=== PATIENT | female | born 2000 | race Caucasian/White ===

== ENCOUNTER 2021-07-23 06:49 | Inpatient (IN) ==
[2021-07-23 09:00] LABS: Basophils # (auto) 0.02 K/uL (0-0.2); Basophils % (auto) 0.2 %; Eosinophils # (auto) 0.06 K/uL (0-0.5); Eosinophils % (auto) 0.5 %; Hematocrit (blood only) 35.3 % (37-47); Hemoglobin 11.1 g/dL (12.0-16.0); Immature Granulocytes # (auto) 0.09 K/uL (0.00-0.02); Immature Granulocytes % (auto) 0.8 %; Lymphocytes # (auto) 2.94 K/uL (1.2-3.4); Lymphocytes % (auto) 25.3 %; Mean Corpuscular Hgb Conc 31.4 g/dL (32-36); Mean Corpuscular Volume 82.7 fL (80-100); Mean Platelet Volume 9.7 fL (7.4-10.4); Monocytes # (auto) 1.01 K/uL (0.11-0.59); Monocytes % (auto) 8.7 %; Neutrophils # (auto) 7.49 K/uL (1.4-6.5); Neutrophils % (auto) 64.5 %; Platelet Count 504 K/uL (130-400); RDW Standard Deviation 45.4 fL (36.4-46.3); Red Blood Count 4.27 M/uL (4.2-5.4); White Blood Count 11.61 K/uL (4.8-10.8)
[2021-07-23 09:18] LABS: Alanine Aminotransferase 16 (12-78); Albumin Level 2.6 gm/dl (3.4-5.0); Aspartate Aminotransferase 12 U/L (15-37); BUN Creatinine Ratio 22.3 (10-20); Blood Urea Nitrogen 13 mg/dl (7-18); Calcium 8.7 mg/dl (8.5-10.1); Carbon Dioxide 20 mmol/L (21-32); Chloride 110 mmol/L (98-107); Creatinine Clr Calc Pharmacy 177.6 ml/min; Est GFR (African American) > 150.0 ml/min; Est GFR (Non-African American) 130.3 ml/min; Glucose 77 mg/dl (70-99); Potassium 4.1 mmol/L (3.5-5.1); Sodium 138 mmol/L (136-145)
[2021-07-23 09:21] LABS: Albumin Globulin Ratio 0.6 (0.9-2); Alkaline Phosphatase 204 U/L (45-117); Globulin 4.3 gm/dl (2.5-4.0); Total Protein 6.9 gm/dl (6.4-8.2)
[2021-07-23 09:31] LABS: Bilirubin,Total 0.1 mg/dl (0.2-1)
[2021-07-23] MEDS: ACETAMINOPHEN 500 MG TAB PO PRN (09:35)
--- NOTE | 2021-07-23 11:04 | History & Physical Report ---
Date of Service July 23, 2021 History of Present Illness Primary Care Provider: NO PCP Allergies Allergy/AdvReac Type Severity Reaction Status Date / Time amoxicillin Allergy Intermediate hives Verified 07/23/21 09:14 Home Medications Medication Instructions Recorded Confirmed Type ondansetron HCl 4 mg tablet 4 mg PO Q6H PRN 07/23/21 07/23/21 History prenat.vits,johanne,[id number]-[id number] 1 tab PO DAILY 07/23/21 07/23/21 History Patient History Medical History (Updated 07/23/21 @ 07:13 by Ginger Carpio RN) Anxiety Depression Scoliosis (and kyphoscoliosis), idiopathic Surgical History (Updated 07/23/21 @ 07:13 by Ginger Carpio RN) S/P PDA repair Family History (Updated 07/23/21 @ 07:15 by Ginger Carpio RN) Father Bipolar 1 disorder Social History (Updated 07/23/21 @ 07:17 by Ginger Carpio RN) Smoking Status: Former smoker Tobacco Type: Cigarettes and E-cigarettes / Vaping Number of Years Since Quit: 1; Second Hand Exposure: Yes; Hx Alcohol Use: No Hx Substance Use: No Preferred Language: Singaporean Communication Ability: Effective Visual Impairment: No Limitations [employer] Insurance Required: No Beliefs That Will Affect Care: None marital status: Single Current Living Situation: Parent Current Living Situation Comment: Lives with mother and FOB current occupational status: unemployed Other Information That Helps Us Care for You: No Feels Safe at Home: Yes Safety Concerns: Feels Safe At This Time Childhood Exposure to Second-Hand Smoke: No Gender Identity: Female Assistive Devices: None Results & Data ([facility]) Vital Signs (Past 12 Hours) Vital Signs Temp Pulse Resp BP 07/23/21 10:06 96 H 129/82 07/23/21 08:27 97 H 133/92 07/23/21 07:33 90 137/94 07/23/21 07:28 36.8 C 90 20 137/94 07/23/21 06:54 105 H 128/92
[2021-07-23] MEDS ORDERED: OXYTOCIN 30 UNITS/500 ML BAG IV PRN ×2 (11:05→11:10)
[2021-07-23 11:21] LABS: Hemoglobin 11.4 g/dL (12.0-16.0); Mean Corpuscular Hemoglobin 26.5 pg (25-34); Mean Corpuscular Hgb Conc 31.7 g/dL (32-36); Mean Corpuscular Volume 83.5 fL (80-100); Mean Platelet Volume 9.8 fL (7.4-10.4); Platelet Count 499 K/uL (130-400); RDW Standard Deviation 46.3 fL (36.4-46.3); Red Blood Count 4.31 M/uL (4.2-5.4); White Blood Count 12.01 K/uL (4.8-10.8)
--- NOTE | 2021-07-23 11:43 | History & Physical Report ---
Date of Service July 23, 2021 Assessment & Plan (1) 39 weeks gestation of : Plan: Admit, routine labs, Start oxytocin for augmentation (2) Thick meconium stained amniotic fluid: (3) Elevated BP without diagnosis of hypertension: Plan: will be GHTN if >BP after 4 hours (4) Positive GBS test: Plan: IV Vanc 1gr q12hr until delivery Admission and Anticipated Discharge Date Admission Date: July 23, 2021 History of Present Illness Chief Complaint: LOF at 5 am Primary Care Provider: NO PCP Patient is a 21 year old at 39 2/7 weeks by stated HANY who started care from [facility] (no records yet) who transferred care to [facility] at 36 weeks. Presents LOF at 5 am. Denies contractions, bleeding. + movement. Denies other complaints at this time records from [facility] pending Allergies Allergy/AdvReac Type Severity Reaction Status Date / Time amoxicillin Allergy Intermediate hives Verified 07/23/21 09:14 Home Medications Medication Instructions Recorded Confirmed Type ondansetron HCl 4 mg tablet 4 mg PO Q6H PRN 07/23/21 07/23/21 History prenat.vits,johanne,sri-gsif-duspc 1 tab PO DAILY 07/23/21 07/23/21 History Patient History Medical History (Updated 07/23/21 @ 11:50 by Chula Chamorro MD, PhD) Anxiety Depression PDA (patent ductus arteriosus) Scoliosis (and kyphoscoliosis), idiopathic Surgical History (Updated 07/23/21 @ 07:13 by Ginger Carpio RN) S/P PDA repair Family History (Updated 07/23/21 @ 07:15 by Ginger Carpio RN) Father Bipolar 1 disorder Social History (Updated 07/23/21 @ 07:17 by Ginger Carpio RN) Smoking Status: Former smoker Tobacco Type: Cigarettes and E-cigarettes / Vaping Number of Years Since Quit: 1; Second Hand Exposure: Yes; Hx Alcohol Use: No Hx Substance Use: No Preferred Language: Yoruba Communication Ability: Effective Visual Impairment: No Limitations Rest Room Matron Required: No Beliefs That Will Affect Care: None marital status: Single Current Living Situation: Parent Current Living Situation Comment: Lives with mother and FOB current occupational status: unemployed Other Information That Helps Us Care for You: No Feels Safe at Home: Yes Safety Concerns: Feels Safe At This Time Childhood Exposure to Second-Hand Smoke: No Gender Identity: Female Assistive Devices: None OB History Per patient ruptured at 32 weeks and made till term. Delievered term and adopted out. Female girl at approx age 4 (Leukemia per patient) Review of Systems All systems reviewed & are unremarkable except as noted in HPI & below Physical Exam Constitutional: WD/WN, vitals as above Respiratory: normal respiratory effort, lungs clear to auscultation Cardiovascular: RRR, no murmur, no edema Gastrointestinal (Abdomen): normal bowel sounds, soft, nontender, no hepatosp lenomegaly US: vertex Genitourinary: no vaginal lesions, no adnexal mass Cx: /- thick mec (checked by RN) Results & Data ([facility]) Vital Signs (Past 12 Hours) Vital Signs Temp Pulse Resp BP 07/23/21 10:06 96 H 129/82 07/23/21 08:27 97 H 133/92 07/23/21 07:33 90 137/94 07/23/21 07:28 36.8 C 90 20 137/94 07/23/21 06:54 105 H 128/92 Monitoring External Monitor FHT: baseline 140, mod variability, +accels, no decels Category I tracing Tocodynamometer Q 5-8 min
[2021-07-23] MEDS: LACTATED RINGER'S 1,000 ML IV PRN ×3 (11:44→22:34)
[2021-07-23] MEDS ORDERED: VANCOMYCIN HCL 1,000 MG in SODIUM CHLORIDE 0.9% 250 ML IV STA (13:02)
[2021-07-23 13:19] LABS: Protein Creatinine Ratio Urine 0.1 (0-0.2); Total Protein Urine Random 24.1 mg/dl (0-11.9)
[2021-07-23] MEDS: VANCOMYCIN HCL 2,000 MG in SODIUM CHLORIDE 0.9% 500 ML IV SCH ×2 (13:55→21:07)
[2021-07-23] MEDS ORDERED: fentaNYL citrate 100 MCG/2 ML VIAL ONE (17:19)
[2021-07-23] MEDS ORDERED: ePHEDrine sulfate 50 MG/ML AMP ONE (17:19)
[2021-07-23] MEDS ORDERED: BUPIVACAINE 0.25% 30 ML VIAL ONE (17:19)
[2021-07-23] MEDS ORDERED: SODIUM CHLORIDE 0.9% INJ 10 ML VIAL ONE (17:19)
[2021-07-23] MEDS ORDERED: fentaNYL 2MCG/ML ROPIVACAINE 1.25MG/ML 100 ML BAG EPI ONE (17:20)
--- NOTE | 2021-07-23 17:24 | Labor Progress Brief Note ---
Date of Service July 23, 2021 Subjective Painful contractions, pain 8/10 Assessment & Plan (1) Thick meconium stained amniotic fluid: (2) Positive GBS test: Plan: IV Vanc 1gr q12hr until delivery (3) Gestational [-induced] hypertension without significant proteinuria, complicating childbirth: Plan: Protein:creatinine 0.2 (normal) (4) 39 weeks gestation of : Plan: Continue oxytocin Epidural Anticipate Admission and Anticipated Discharge Date Admission Date: July 23, 2021 Physical Exam Constitutional: WD/WN, vitals as above Genitourinary: FHT: baseline 145, mod variability, +accels, no decels, cat 1 [place]: q3-4 min Cx: unchanged (checked by RN) Results & Data ([facility]) Vital Signs (Past 12 Hours) Vital Signs Temp Pulse Resp BP 07/23/21 16:22 72 121/76 07/23/21 15:22 36.9 C 88 20 142/88 H 07/23/21 14:22 82 134/88 07/23/21 13:21 100 H 128/77 07/23/21 13:07 85 135/90 07/23/21 12:52 92 H 142/89 H 07/23/21 12:36 99 H 134/85 07/23/21 12:21 92 H 134/81 07/23/21 12:06 37 C 99 H 20 141/92 H 07/23/21 10:06 96 H 129/82 07/23/21 08:27 97 H 133/92 07/23/21 07:33 90 137/94 07/23/21 07:28 36.8 C 90 20 137/94 07/23/21 06:54 105 H 128/92
[2021-07-23] MEDS ORDERED: NALBUPHINE HCL INJ 10 MG/ML AMP IV PRN (19:13)
[2021-07-23] MEDS ORDERED: ONDANSETRON INJ 2 MG/ML 2 ML VIAL IV PRN (19:13)
[2021-07-23] MEDS ORDERED: ePHEDrine sulfate 50 MG/ML AMP IV PRN (19:13)
[2021-07-23] MEDS ORDERED: fentaNYL 2MCG/ML ROPIVACAINE 1.25MG/ML 100 ML BAG EPI PRN (19:13)
[2021-07-23] MEDS ORDERED: PROMETHAZINE HCL 6.25 MG in SODIUM CHLORIDE 0.9% 50 ML IV PRN (19:13)
[2021-07-23] MEDS ORDERED: diphenhydrAMINE 50 MG/ML VIAL IV PRN (19:13)
[2021-07-23] MEDS ORDERED: NALOXONE HCL 1 MG in SODIUM CHLORIDE 0.9% 1000ML 1,000 ML IV PRN (19:13)
[2021-07-23] MEDS ORDERED: NALOXONE HCL 0.4 MG/1 ML VIAL/CARP IV PRN (19:13)
--- NOTE | 2021-07-23 19:13 | Anesthesiology Consultation ---
Date of Service July 23, 2021 Assessment & Plan Chart Review Chart Review: Patient NOT seen in Pre Admission Testing and Acceptable Risk for Labor Epidural Consults Requested none ASA ASA2 Proposed Anesthesia Anesthesia Type: Labor Epidural Risk / Benefits Reviewed With: PT / POA / Parent / Guardian, Accepts Plan and Informed Consent Obtained History Height/Weight Height: 5 ft 6 in Weight: 100.698 kg Allergies Allergy/AdvReac Type Severity Reaction Status Date / Time amoxicillin Allergy Intermediate hives Verified 07/23/21 09:14 Medications Home Medications Medication Instructions Recorded Confirmed Last Taken ondansetron HCl 4 mg tablet 4 mg PO Q6H PRN 07/23/21 07/23/21 07/21/21 08:00 prenat.vits,johanne,dyl-jsgn-oiwdt 1 tab PO DAILY 07/23/21 07/23/21 07/22/21 08:00 Active Medications Generic Name Dose Route Start Last Admin Trade Name Freq PRN Reason Stop Dose Admin Acetaminophen 1,000 mg 07/23/21 08:36 07/23/21 09:35 Acetaminophen 500 Mg Tab PO 08/22/21 08:35 1,000 mg Q6H PRN Administration headache Lactated Ringer's 1,000 mls @ 125 mls/hr 07/23/21 11:05 07/23/21 18:49 Lr IV 07/25/21 11:04 125 mls/hr .Q8H PRN Infusion L&D Protocol Protocol Oxytocin 30 units in 500 mls @ 18 mls/hr 07/23/21 11:10 07/23/21 18:48 Pitocin IV 07/25/21 11:09 1.08 units/hr .Q24H PRN 18 mls/hr Labor Induction/Augmentation Titration Protocol 1.08 UNITS/HR Vancomycin HCl 2,000 mg/ 540 mls @ 200 mls/hr 07/23/21 13:30 07/23/21 13:55 Sodium Chloride IV 07/25/21 13:29 200 mls/hr Q8H CHERELLE Administration Past Medical History Medical History (Updated 07/23/21 @ 17:23 by Chula Chamorro MD, PhD) Anxiety Depression PDA (patent ductus arteriosus) Scoliosis (and kyphoscoliosis), idiopathic Exercise / Class Metabolic Activity II 4-5 Yardwork/Stairs/Walk up hill Past Family History Family History (Updated 07/23/21 @ 07:15 by Ginger Carpio RN) Father Bipolar 1 disorder Past Surgical History Surgical History (Updated 07/23/21 @ 18:30 by Ginger Carpio RN) S/P PDA repair (~08/07/01) Past Anesthesia History No Hx of Anesthesia Complications and No Family Hx of Anesthesia Complications History of PONV No Hx of PONV and No Hx of Motion Sickness Social History Smoking Status: Former smoker Hx Alcohol Use: No Hx Substance Use: No substance use type: does not use Physical Exam Vital Signs Last Vital Signs Temp 37 C 07/23/21 17:40 Pulse 88 07/23/21 19:11 Resp 20 07/23/21 17:40 BP 132/79 07/23/21 19:11 Pulse Ox 99 07/23/21 19:07 ENMT Mouth: no dentition abnormality Thyromental Distance: > or= 3.5 Finger Breadths Mallampati Class: II Neck normal visual inspection Respiratory normal respiratory effort Auscultation: lungs clear to auscultation bilaterally Cardiovascular Rate/Rhythm: regular rate and regular rhythm Psychiatric Orientation: alert Testing Laboratory Results 07/23/21 11:13 07/23/21 08:51
[2021-07-23] MEDS ORDERED: VANCOMYCIN HCL 1,000 MG in SODIUM CHLORIDE 0.9% 250 ML IV PRN (22:05)
--- NOTE | 2021-07-23 22:34 | Labor Progress Brief Note ---
Date of Service July 23, 2021 Subjective Comfortable on epidural Assessment & Plan (1) Thick meconium stained amniotic fluid: (2) Positive GBS test: Plan: IV Vanc 1gr q12hr until delivery (3) Gestational [-induced] hypertension without significant proteinuria, complicating childbirth: Plan: Protein:creatinine 0.2 (normal) (4) 39 weeks gestation of : Plan: Contineu pit Epidural Anticipate Admission and Anticipated Discharge Date Admission Date: July 23, 2021 Physical Exam Constitutional: WD/WN, vitals as above Genitourinary: FHT:baseline 155 mod variability, no accels, variable decels, cat II [place]: q2-3 min pit at 18 Cx: 3/90/-1 IUPC placed Results & Data ([facility]) Vital Signs (Past 12 Hours) Vital Signs Temp Pulse Resp BP Pulse Ox 07/23/21 22:27 93 H 99 07/23/21 22:22 101 H 99 07/23/21 22:20 96 H 130/78 07/23/21 22:17 100 H 99 07/23/21 22:12 99 H 98 07/23/21 22:07 97 H 98 07/23/21 22:06 90 130/78 07/23/21 22:05 37.3 C 18 07/23/21 22:02 99 H 98 07/23/21 21:57 115 H 99 07/23/21 21:52 114 H 98 07/23/21 21:50 103 H 128/82 07/23/21 21:47 108 H 99 07/23/21 21:42 103 H 100 07/23/21 21:37 110 H 99 07/23/21 21:36 109 H 132/73 07/23/21 21:32 100 H 99 07/23/21 21:27 102 H 99 07/23/21 21:22 93 H 97 07/23/21 21:20 90 119/62 07/23/21 21:17 87 98 07/23/21 21:12 85 98 07/23/21 21:07 91 H 98 07/23/21 21:05 88 120/65 07/23/21 21:02 89 98 07/23/21 20:57 101 H 98 07/23/21 20:55 37.5 C 18 07/23/21 20:52 98 H 97 07/23/21 20:50 105 H 137/89 07/23/21 20:47 107 H 97 07/23/21 20:42 103 H 97 07/23/21 20:37 102 H 98 07/23/21 20:35 105 H 136/79 07/23/21 20:32 103 H 97 07/23/21 20:27 106 H 98 07/23/21 20:22 132 H 97 07/23/21 20:20 113 H 132/80 92 07/23/21 20:17 95 H 98 07/23/21 20:12 99 H 98 07/23/21 20:07 97 H 95 07/23/21 20:06 98 H 129/82 07/23/21 20:02 97 H 95 07/23/21 19:57 95 H 97 07/23/21 19:52 92 H 97 07/23/21 19:50 87 133/83 07/23/21 19:47 94 H 96 07/23/21 19:42 88 96 07/23/21 19:37 85 97 07/23/21 19:36 86 134/82 07/23/21 19:32 90 97 07/23/21 19:27 86 97 07/23/21 19:22 94 H 97 07/23/21 19:20 84 131/75 07/23/21 19:17 96 H 96 07/23/21 19:12 91 H 98 07/23/21 19:11 88 20 132/79 07/23/21 19:10 37.1 C 16 07/23/21 19:07 89 99 07/23/21 19:06 86 132/79 07/23/21 19:02 89 99 07/23/21 18:57 93 H 100 07/23/21 18:52 92 H 98 07/23/21 18:50 82 18 131/77 07/23/21 18:47 85 98 07/23/21 18:42 104 H 97 07/23/21 18:37 90 98 07/23/21 18:35 94 H 20 123/71 07/23/21 18:32 96 H 98 07/23/21 18:27 95 H 100 07/23/21 18:22 93 H 99 07/23/21 18:19 95 H 137/81 07/23/21 18:17 95 H 144/85 H 98 07/23/21 18:15 93 H 142/86 H 07/23/21 18:13 92 H 134/76 07/23/21 18:12 97 H 96 07/23/21 18:11 99 H 146/83 H 07/23/21 18:09 95 H 145/85 H 07/23/21 18:07 105 H 20 133/84 97 07/23/21 18:05 95 H 141/87 H 07/23/21 18:03 91 H 141/94 H 07/23/21 18:02 99 H 128/79 92 07/23/21 17:57 89 99 07/23/21 17:40 37 C 88 20 143/87 H 07/23/21 17:22 87 20 126/87 07/23/21 16:22 72 121/76 07/23/21 15:22 36.9 C 88 20 142/88 H 07/23/21 14:22 82 134/88 07/23/21 13:21 100 H 128/77 07/23/21 13:07 85 135/90 07/23/21 12:52 92 H 142/89 H 07/23/21 12:36 99 H 134/85 07/23/21 12:21 92 H 134/81 07/23/21 12:06 37 C 99 H 20 141/92 H
[2021-07-24] MEDS: ACETAMINOPHEN 500 MG TAB PO PRN (00:40)
[2021-07-24] MEDS: LACTATED RINGER'S 1,000 ML IV PRN (02:32)
[2021-07-24] MEDS: VANCOMYCIN HCL 2,000 MG in SODIUM CHLORIDE 0.9% 500 ML IV SCH (05:15)
--- NOTE | 2021-07-24 06:37 | Labor Progress Brief Note ---
Date of Service July 24, 2021 Subjective Comfortable on epidural, feeling more pressure Assessment & Plan (1) Thick meconium stained amniotic fluid: (2) Positive GBS test: Plan: IV Vanc 1gr q12hr until delivery (3) Gestational [-induced] hypertension without significant proteinuria, complicating childbirth: Plan: Protein:creatinine 0.2 (normal) (4) 39 weeks gestation of : Plan: Contineu pit Epidural Anticipate Admission and Anticipated Discharge Date Admission Date: July 23, 2021 Physical Exam Constitutional: WD/WN, vitals as above Genitourinary: Heart tracing: Baseline 155, moderate variability, early decelerations Tocometer: Q. 2 to 4 minutes Pitocin at 4 units Cervix: ant lip/100/0 checked by RN Results & Data ([facility]) Vital Signs (Past 12 Hours) Vital Signs Temp Pulse Resp BP Pulse Ox 07/24/21 06:35 94 H 133/80 07/24/21 06:32 93 H 98 07/24/21 06:27 110 H 100 07/24/21 06:22 91 H 97 07/24/21 06:21 88 133/80 07/24/21 06:17 106 H 100 07/24/21 06:12 109 H 98 07/24/21 06:07 109 H 97 07/24/21 06:05 110 H 139/86 07/24/21 06:02 119 H 100 07/24/21 05:57 101 H 97 07/24/21 05:54 120 H 90 07/24/21 05:52 101 H 98 07/24/21 05:50 100 H 135/84 07/24/21 05:47 104 H 98 07/24/21 05:42 111 H 98 07/24/21 05:37 118 H 99 07/24/21 05:36 134 H 134/92 07/24/21 05:32 136 H 98 07/24/21 05:27 136 H 100 07/24/21 05:22 138 H 99 07/24/21 05:17 123 H 100 07/24/21 05:12 129 H 99 07/24/21 05:07 113 H 98 07/24/21 05:05 37.4 C 113 H 18 145/97 H 07/24/21 05:02 111 H 100 07/24/21 04:57 122 H 100 07/24/21 04:52 108 H 100 07/24/21 04:50 113 H 143/94 H 90 07/24/21 04:47 104 H 100 07/24/21 04:46 18 07/24/21 04:42 86 98 07/24/21 04:37 87 98 07/24/21 04:35 88 139/87 07/24/21 04:32 93 H 98 07/24/21 04:30 18 07/24/21 04:27 82 99 07/24/21 04:22 96 H 100 07/24/21 04:20 89 132/87 07/24/21 04:17 99 H 100 07/24/21 04:12 86 98 07/24/21 04:07 87 98 07/24/21 04:05 85 131/80 07/24/21 04:02 83 99 07/24/21 04:00 18 07/24/21 03:57 99 H 100 07/24/21 03:52 83 100 07/24/21 03:50 86 132/79 07/24/21 03:47 96 H 97 07/24/21 03:42 87 99 07/24/21 03:37 93 H 100 07/24/21 03:35 88 134/83 07/24/21 03:32 85 98 07/24/21 03:27 86 98 07/24/21 03:22 96 H 98 07/24/21 03:20 81 126/72 07/24/21 03:17 85 97 07/24/21 03:12 86 98 07/24/21 03:07 86 98 07/24/21 03:05 85 131/78 07/24/21 03:02 90 99 07/24/21 02:57 84 99 07/24/21 02:52 91 H 100 07/24/21 02:50 86 127/75 07/24/21 02:47 89 98 07/24/21 02:42 85 99 07/24/21 02:37 88 98 07/24/21 02:35 90 117/70 07/24/21 02:33 37.1 C 16 07/24/21 02:32 87 98 07/24/21 02:27 90 97 07/24/21 02:22 91 H 97 07/24/21 02:20 100 H 134/79 07/24/21 02:17 93 H 97 01/08/22 02:12 97 H 98 07/24/21 02:07 84 98 07/24/21 02:05 83 135/67 07/24/21 02:02 84 98 07/24/21 01:57 91 H 97 07/24/21 01:52 89 97 07/24/21 01:50 84 132/71 07/24/21 01:47 92 H 97 07/24/21 01:42 93 H 97 07/24/21 01:37 92 H 97 07/24/21 01:35 90 130/73 07/24/21 01:32 88 97 07/24/21 01:27 90 97 07/24/21 01:22 93 H 97 07/24/21 01:20 90 140/81 07/24/21 01:17 101 H 99 07/24/21 01:13 37.4 C 18 07/24/21 01:12 92 H 99 07/24/21 01:07 101 H 98 07/24/21 01:06 90 134/79 07/24/21 01:02 91 H 97 07/24/21 00:57 93 H 97 07/24/21 00:52 91 H 97 07/24/21 00:50 93 H 131/80 07/24/21 00:47 96 H 98 07/24/21 00:42 94 H 99 07/24/21 00:37 99 H 98 07/24/21 00:35 96 H 136/91 07/24/21 00:32 96 H 99 07/24/21 00:31 108 H 87 L 07/24/21 00:27 89 97 07/24/21 00:22 93 H 98 07/24/21 00:20 91 H 130/80 07/24/21 00:17 99 H 98 07/24/21 00:12 97 H 98 07/24/21 00:10 37.3 C 16 07/24/21 00:07 117 H 100 07/24/21 00:05 100 H 125/87 07/24/21 00:02 116 H 100 07/23/21 23:57 112 H 97 07/23/21 23:52 93 H 97 07/23/21 23:50 91 H 123/78 07/23/21 23:47 123 H 98 07/23/21 23:42 107 H 97 07/23/21 23:37 90 97 07/23/21 23:35 111 H 130/78 07/23/21 23:32 113 H 98 07/23/21 23:27 107 H 97 07/23/21 23:22 110 H 97 07/23/21 23:20 93 H 126/72 07/23/21 23:17 94 H 97 07/23/21 23:12 94 H 97 07/23/21 23:07 91 H 100 07/23/21 23:06 88 132/80 07/23/21 23:02 97 H 100 07/23/21 22:57 89 100 07/23/21 22:52 110 H 97 07/23/21 22:51 86 94 07/23/21 22:50 96 H 123/75 07/23/21 22:47 104 H 88 L 07/23/21 22:45 99 H 89 L 07/23/21 22:42 94 H 100 07/23/21 22:40 94 H 92 07/23/21 22:37 101 H 99 07/23/21 22:35 96 H 126/76 07/23/21 22:32 96 H 98 07/23/21 22:27 93 H 99 07/23/21 22:22 101 H 99 07/23/21 22:20 96 H 130/78 07/23/21 22:17 100 H 99 07/23/21 22:12 99 H 98 07/23/21 22:07 97 H 98 07/23/21 22:06 90 130/78 07/23/21 22:05 37.3 C 18 07/23/21 22:02 99 H 98 07/23/21 21:57 115 H 99 07/23/21 21:52 114 H 98 07/23/21 21:50 103 H 128/82 07/23/21 21:47 108 H 99 07/23/21 21:42 103 H 100 07/23/21 21:37 110 H 99 07/23/21 21:36 109 H 132/73 07/23/21 21:32 100 H 99 07/23/21 21:27 102 H 99 07/23/21 21:22 93 H 97 07/23/21 21:20 90 119/62 07/23/21 21:17 87 98 07/23/21 21:12 85 98 07/23/21 21:07 91 H 98 07/23/21 21:05 88 120/65 07/23/21 21:02 89 98 07/23/21 20:57 101 H 98 07/23/21 20:55 37.5 C 18 07/23/21 20:52 98 H 97 07/23/21 20:50 105 H 137/89 07/23/21 20:47 107 H 97 07/23/21 20:42 103 H 97 07/23/21 20:37 102 H 98 07/23/21 20:35 105 H 136/79 07/23/21 20:32 103 H 97 07/23/21 20:27 106 H 98 07/23/21 20:22 132 H 97 07/23/21 20:20 113 H 132/80 92 07/23/21 20:17 95 H 98 07/23/21 20:12 99 H 98 07/23/21 20:07 97 H 95 07/23/21 20:06 98 H 129/82 07/23/21 20:02 97 H 95 07/23/21 19:57 95 H 97 07/23/21 19:52 92 H 97 07/23/21 19:50 87 133/83 07/23/21 19:47 94 H 96 07/23/21 19:42 88 96 07/23/21 19:37 85 97 07/23/21 19:36 86 134/82 07/23/21 19:32 90 97 07/23/21 19:27 86 97 07/23/21 19:22 94 H 97 07/23/21 19:20 84 131/75 07/23/21 19:17 96 H 96 07/23/21 19:12 91 H 98 07/23/21 19:11 88 20 132/79 07/23/21 19:10 37.1 C 16 07/23/21 19:07 89 99 07/23/21 19:06 86 132/79 07/23/21 19:02 89 99 07/23/21 18:57 93 H 100 07/23/21 18:52 92 H 98 07/23/21 18:50 82 18 131/77 07/23/21 18:47 85 98 07/23/21 18:42 104 H 97 07/23/21 18:37 90 98
[2021-07-24] MEDS ORDERED: METHYLERGONOVINE MALEATE 0.2 MG/ML AMP ONE (10:12)
--- NOTE | 2021-07-24 10:21 | Delivery Summary ---
Vaginal Delivery Summary Date of Service July 24, 2021 Vaginal Delivery Summary Delivery Note live female HERMINIA over intact perineum with delayed cord clamping and Apgars 8/9 weight pending. Cord blood obtained followed by spontaneous delivery of intact placenta. No tears. EBL 100 ml. Final sponge and instrument count are correct. Mom and baby stable.
--- NOTE | 2021-07-24 10:23 | Anesthesia Procedure Note ---
Date of Service July 24, 2021 Anesthesia Post Epidural Note Vital Signs Vital Signs: Temp Pulse Resp BP Pulse Ox 99.0 F 112 H 20 141/81 H 97 07/24/21 07:05 07/24/21 10:20 07/24/21 08:05 07/24/21 10:20 07/24/21 08:47 Pain Intensity Abdomen: Pain Intensity: 7 Notes Mental Status: alert / awake / arousable and participated in evaluation Nausea / Vomiting: adequately controlled Pain: adequately controlled Airway Patency, RR, SpO2: stable & adequate BP & HR: stable & adequate Hydration State: stable & adequate Neuraxial Anesthesia: was administered and sensory block is resolving Anesthetic Complications: no major complications apparent and Pt Satisfied with anesthetic care Epidural: Removed without complications and With tip intact
[2021-07-24] MEDS ORDERED: BENZOCAINE 20% AER SPR 82.5 GM CAN EXT PRN (11:29)
[2021-07-24] MEDS ORDERED: bisacodyL 10 MG SUPP PR PRN (11:29)
[2021-07-24] MEDS ORDERED: ACETAMINOPHEN 325 MG TAB PO PRN (11:29)
[2021-07-24] MEDS ORDERED: IBUPROFEN 600 MG TAB PO PRN (11:29)
[2021-07-24] MEDS ORDERED: OXYTOCIN 30 UNITS/500 ML BAG IV PRN (11:29)
[2021-07-24] MEDS ORDERED: DIPHTHERIA/TETANUS/PERTUSSIS 0.5 ML SYR/VIAL IM ONE (11:29)
[2021-07-24] MEDS ORDERED: HYDROCORTISONE ACETATE 25 MG SUPP PR PRN (11:29)
[2021-07-24] MEDS ORDERED: SUPERCREAM 0.870% 15 GM JAR EXT PRN (11:29)
[2021-07-24] MEDS ORDERED: ONDANSETRON 4 MG OD TAB PO PRN (11:49)
[2021-07-24] MEDS: DOCUSATE SODIUM 100 MG CAP PO SCH (21:41)
[2021-07-25 07:57] LABS: Hemoglobin 9.1 g/dL (12.0-16.0); Mean Corpuscular Hemoglobin 26.2 pg (25-34); Mean Corpuscular Hgb Conc 31.4 g/dL (32-36); Mean Corpuscular Volume 83.6 fL (80-100); Mean Platelet Volume 9.6 fL (7.4-10.4); Platelet Count 375 K/uL (130-400); RDW Coefficient of Variation 15.5 % (11.5-14.5); Red Blood Count 3.47 M/uL (4.2-5.4); White Blood Count 18.03 K/uL (4.8-10.8)
[2021-07-25] MEDS ORDERED: PRENATAL VITAMIN 1 TAB PO SCH (08:00)
[2021-07-25] MEDS ORDERED: FERROUS SULFATE 325 MG TAB PO SCH (08:00)
[2021-07-25] MEDS ORDERED: NON-FORMULARY MEDICATION (Prenat.Vits,Cal,Min-Iron-Folic Tablet) PO SCH (09:00)
[2021-07-25] MEDS: DOCUSATE SODIUM 100 MG CAP PO SCH (09:27)
--- NOTE | 2021-07-25 09:47 | Obstetrical Progress Note ---
Date of Service July 25, 2021 Subjective Ambulation: ambulating normally Voiding: no voiding problems Passing Gas:: Yes Diet Tolerance:: regular diet Lochia:: Small Feeding Type:: breast feeding Current Pain Level(1-10): 0 plans for d/c Physical Exam Constitutional WD/WN, vitals as above comfortable abdomen soft and non-tender fundus firm no edema neg Pamela's for d/c today Results & Data ([facility]) Vital Signs (Past 12 Hours) Vital Signs Temp Pulse Resp BP 07/25/21 03:35 37.1 C 88 16 128/73 07/24/21 23:40 37.2 C 86 18 119/74 Laboratory Results Laboratory Results - last 72 hr 07/23/21 07/23/21 07/23/21 08:51 08:51 11:13 WBC 11.61 H 12.01 H RBC 4.27 4.31 Hgb 11.1 L 11.4 L Hct 35.3 L 36.0 L MCV 82.7 83.5 MCH 26.0 26.5 MCHC 31.4 L 31.7 L RDW Std Deviation 45.4 46.3 RDW Coeff of April 15.0 H 15.0 H Plt Count 504 H 499 H MPV 9.7 9.8 Immature Gran % (Auto) 0.8 Neut % (Auto) 64.5 Lymph % (Auto) 25.3 Slope % (Auto) 8.7 Eos % (Auto) 0.5 Baso % (Auto) 0.2 Neut # (Auto) 7.49 H Lymph # (Auto) 2.94 Slope # (Auto) 1.01 H Eos # (Auto) 0.06 Baso # (Auto) 0.02 Immature Gran # (Auto) 0.09 H Sodium 138 Potassium 4.1 Chloride 110 H Carbon Dioxide 20 L Anion Gap 7.0 BUN 13 Creatinine 0.60 Est Cr Clr Drug Dosing 177.6 Est GFR ( Amer) > 150.0 Est GFR (Non-Af Amer) 130.3 BUN/Creatinine Ratio 22.3 H Glucose 77 Calcium 8.7 Total Bilirubin 0.1 L AST 12 L ALT 16 Alkaline Phosphatase 204 H Total Protein 6.9 Albumin 2.6 L Globulin 4.3 H Albumin/Globulin Ratio 0.6 L Ur Random Creatinine U Random Total Protein Protein/Creatinin Ratio SARS-CoV-2, RNA, NAAT 07/23/21 07/23/21 07/25/21 12:35 12:45 07:30 WBC 18.03 H RBC 3.47 L Hgb 9.1 L Hct 29.0 L MCV 83.6 MCH 26.2 MCHC 31.4 L RDW Std Deviation 47.0 H RDW Coeff of April 15.5 H Plt Count 375 MPV 9.6 Immature Gran % (Auto) Neut % (Auto) Lymph % (Auto) Slope % (Auto) Eos % (Auto) Baso % (Auto) Neut # (Auto) Lymph # (Auto) Slope # (Auto) Eos # (Auto) Baso # (Auto) Immature Gran # (Auto) Sodium Potassium Chloride Carbon Dioxide Anion Gap BUN Creatinine Est Cr Clr Drug Dosing Est GFR ( Amer) Est GFR (Non-Af Amer) BUN/Creatinine Ratio Glucose Calcium Total Bilirubin AST ALT Alkaline Phosphatase Total Protein Albumin Globulin Albumin/Globulin Ratio Ur Random Creatinine 167.0 U Random Total Protein 24.1 H Protein/Creatinin Ratio 0.1 SARS-CoV-2, RNA, NAAT NEGATIVE
[2021-07-25] MEDS ORDERED: bisacodyL 5 MG TABEC PO SCH (20:00)
== END 2021-07-25 17:30 | disposition home or self-care (01) | DRG 807 ==
LOC: OPB 06:49 → 4S1 06:53 → 4S2 07-24 13:58